=== PATIENT | male | born 1955 | race Caucasian/White ===

== ENCOUNTER 2021-06-18 07:27 | Outpatient (CLI) | payer MEDICARE, SELFPAY ==
[2021-06-18 18:26] LABS: Hematocrit 43.7 % (42.0-52.0); Mean Corpuscular Hemoglobin 29.4 pg (26-34); Mean Corpuscular Volume 91.6 fl (80-100); Mean Platelet Volume 10.8 fl (7.4-10.4); Platelet Count Result 210 k/mm3 (150-375); Red Blood Count 4.77 M/mm3 (4.6-6.20); Red Cell Distribution Width 12.7 % (11.5-14.5); White Blood Count 6.7 K/mm3 (4.5-10.0)
[2021-06-18 18:33] LABS: Alanine Aminotransferase 28 U/L (4-50); Albumin Level 4.1 g/dL (3.5-5.1); Alkaline Phosphatase 77 U/L (38-126); Anion Gap 8 mmol/L (8-16); Aspartate Amino Transferase 28 U/L (17-59); Bilirubin,Total 0.4 mg/dL (0.2-1.3); Blood Urea Nitrogen 22 mg/dL (9-20); Calcium 9.1 mg/dL (8.4-10.2); Carbon Dioxide 25 mmol/L (22-30); Chloride 107 mmol/L (98-107); Cholesterol 164 mg/dL (0-200); Estimated Glomerular Filt Rate > 60; Glucose 122 mg/dL (65-110); HDL Direct 40 mg/dL; Potassium 4.7 mmol/L (3.4-5.0); Sodium 140 mmol/L (137-145); Triglycerides 178 mg/dL (<150)
[2021-06-18 18:45] LABS: LDL Cholesterol Direct 77 mg/dL
[2021-06-18 19:03] LABS: Prostate Specific Antigen 0.7 ng/mL (< OR = 4.0)
== END 2021-06-18 07:28 | disposition home or self-care (01) ==
PROVIDERS: PCP Family Medicine; Visit Provider Family Medicine
DX: G47.33 Obstructive sleep apnea (adult) (pediatric) (principal); H35.09 Other intraretinal microvascular abnormalities; I10 Essential (primary) hypertension; Z12.5 Encounter for screening for malignant neoplasm of prostate; Z87.891 Personal history of nicotine dependence
CPT/HCPCS: 36415; 80053; 80061; 84153; 85027; G0103

== ENCOUNTER 2021-06-20 07:19 | Outpatient (CLI) | payer MEDICARE, SELFPAY ==
[2021-06-20 19:12] LABS: Hemoglobin A1C 5.9 % (<5.7)
== END 2021-06-20 07:20 | disposition home or self-care (01) ==
PROVIDERS: PCP Family Medicine; Visit Provider Family Medicine
DX: R73.09 Other abnormal glucose (principal)
CPT/HCPCS: 36415; 83036

== ENCOUNTER → 2021-06-27 13:26 | Outpatient (CLI) | payer MEDICARE, SELFPAY ==
--- NOTE | ~2021-06-27 | US_ITS ---
EXAMINATION: US aorta DATE: 06/27/2021 14:23 INDICATION: Abdominal aortic aneurysm risk factors of hypertension, prior smoking and hypercholestero lemia. TECHNIQUE: Grayscale, color Doppler, and pulsed Doppler images of the aorta and common iliac arteries were obtained. COMPARISON: None. FINDINGS: The proximal aorta measures 2.6 cm in AP diameter. The mid aorta measures 2.6 cm. The distal aorta me asures 2.0 cm. The right common iliac artery measures 1.2 cm. The left common iliac artery measures 1 .1 cm. IMPRESSION: 1. Normal caliber abdominal aorta. Reviewed, dictated and finalized at location A.
== END ==
PROVIDERS: PCP Family Medicine; Visit Provider Family Medicine
DX: G47.33 Obstructive sleep apnea (adult) (pediatric) (principal); H35.09 Other intraretinal microvascular abnormalities; I10 Essential (primary) hypertension; Z87.891 Personal history of nicotine dependence
CPT/HCPCS: 76775

== ENCOUNTER 2021-12-11 07:36 | Outpatient (CLI) | payer MEDICARE, SELFPAY ==
[2021-12-11 19:11] LABS: Hematocrit 45.2 % (42.0-52.0); Hemoglobin 14.8 g/dL (14.0-18.0); Mean Corpuscular HGB Conc 32.7 g/dl (32-36); Mean Corpuscular Hemoglobin 30.5 pg (26-34); Mean Platelet Volume 10.4 fl (7.4-10.4); Platelet Count Result 214 k/mm3 (150-375); Red Blood Count 4.86 M/mm3 (4.6-6.20); Red Cell Distribution Width 12.8 % (11.5-14.5); White Blood Count 6.4 K/mm3 (4.5-10.0)
[2021-12-11 19:30] LABS: Alanine Aminotransferase 35 U/L (4-50); Albumin Level 4.2 g/dL (3.5-5.1); Alkaline Phosphatase 70 U/L (38-126); Anion Gap 6 mmol/L (8-16); Aspartate Amino Transferase 32 U/L (17-59); Bilirubin,Total 0.6 mg/dL (0.2-1.3); Blood Urea Nitrogen 19 mg/dL (9-20); Calcium 9.1 mg/dL (8.4-10.2); Carbon Dioxide 25 mmol/L (22-30); Chloride 107 mmol/L (98-107); Cholesterol 174 mg/dL (0-200); Estimated Glomerular Filt Rate > 60; Glucose 110 mg/dL (65-110); HDL Direct 38 mg/dL; Potassium 4.3 mmol/L (3.4-5.0); Sodium 138 mmol/L (137-145); Triglycerides 204 mg/dL (<150)
[2021-12-11 19:41] LABS: LDL Cholesterol Direct 90 mg/dL
[2021-12-11 20:04] LABS: Hemoglobin A1C 5.8 % (<5.7)
== END 2021-12-11 07:37 | disposition home or self-care (01) ==
PROVIDERS: PCP Family Medicine; Visit Provider Family Medicine
DX: R73.09 Other abnormal glucose (principal); E78.5 Hyperlipidemia, unspecified; I10 Essential (primary) hypertension; Z87.891 Personal history of nicotine dependence
CPT/HCPCS: 36415; 80053; 80061; 83036; 85027

== ENCOUNTER 2022-05-05 08:54 | Outpatient (CLI) | payer MEDICARE, SELFPAY ==
[2022-05-05 21:24] LABS: Hemoglobin A1C 5.8 % (<5.7)
== END 2022-05-05 08:55 | disposition home or self-care (01) ==
LOC: ANHBWCLAB 08:56
PROVIDERS: PCP Family Medicine; Visit Provider Family Medicine
DX: R73.03 Prediabetes (principal)
CPT/HCPCS: 36415; 83036

== ENCOUNTER 2022-07-09 10:47 | Day surgery (SDC) | payer MEDICARE, SELFPAY ==
[2022-04-17 14:59] VITALS: BMI 26.2
[2022-06-24 08:48] VITALS: BMI 25.9
--- NOTE | 2022-07-08 07:37 | PM.HPGS ---
History of Present Illness History of Present Illness Consent: Risks, benefits, and alternatives have been discussed and questions answered. Patient agrees to proceed with procedure. Chief complaint: Dysphagia Narrative: Umer Cheney is a 67 year old male who ?for the past 6 months he has noticed that he has a difficult time getting food to go down.? This particularly happens with bread like a sandwich.? It feels as though it is stuck in his throat.? There times even water seems to get hung up.? When it does go down then he will develop hiccups.? He does not feel as though food is stuck in the middle of his chest.? He has not lost weight.? He has had no abdominal pain nausea vomiting or change in bowel habits.? He has a history of acid reflux that he has been dealing with for over 40 years.? He thinks he had an EGD in the 1980s.? He was on Prilosec, then Nexium, and more recently has switched to famotidine.? These do control his symptoms? of heartburn. Review of Systems Review of Systems: All systems reviewed & are unremarkable except as noted in HPI and below PMFSH Past Medical History Medical History Anxiety HTN (hypertension) Surgical History Surgical History H/O eye surgery H/O rhinoplasty Family History Family History Father Heart attack Heart disease Mother Depression Hypertension Anxiety Dementia Sibling Hypertension Social History Social History Smoking packs per day: 0.5 Smoking cigarettes per day: 10.0 Years smoked: 15 Smoking pack-years: 7.50 Smoking status: Former smoker Tobacco type: cigarettes Second hand tobacco smoke exposure: Yes Alcohol intake: current Drinks per week: 7 Alcohol use details: BEER Substance use: never Substance use type: does not use Living arrangements: with family Gender identity (if verbalized by the patient): Male Spiritual care concerns: No Meds Home Medications and Allergies Home Medications Medication Instructions Recorded Confirmed Type atorvastatin 10 mg tablet 10 mg PO DAILY #90 tabs 09/17/21 06/24/22 Rx omeprazole 40 mg capsule,delayed 40 mg PO DAILY #90 caps 09/17/21 06/24/22 Rx release aripiprazole 2 mg tablet (Abilify) 2 mg PO DAILY #90 tabs 02/10/22 06/24/22 Rx bupropion HCl 300 mg 24 hr tablet, 300 mg PO QAM #90 tabs 02/10/22 06/24/22 Rx extended release citalopram 40 mg tablet 40 mg PO DAILY #90 tabs 02/10/22 06/24/22 Rx propranolol 10 mg tablet 10 mg PO Q12H #180 tabs 02/10/22 06/24/22 Rx famotidine 40 mg tablet (Pepcid) 40 mg PO DAILY #90 tabs 04/09/22 06/24/22 Rx amlodipine 2.5 mg tablet 2.5 mg PO DAILY #90 tabs 04/27/22 06/24/22 Rx benazepril 40 mg tablet 40 mg PO DAILY #90 tabs 05/24/22 06/24/22 Rx Allergies Allergy/AdvReac Type Severity Reaction Status Date / Time No Known Allergies Allergy Verified 07/09/22 11:59 Exam Const: General: alert Orientation/consciousness: patient oriented x3 Resp: Auscultation: clear to auscultation bilaterally Cardio: Rhythm: regular rhythm GI: GI Palp: Yes Soft to palpation and No Tenderness to palpation present (GI) Neuro: General: patient oriented x3 Assessment and Plan Assessment and plan (1) Dysphagia: Code(s): R13.10 - Dysphagia, unspecified Status: Acute Assessment and Plan: EGD with possible biopsy or dilatation or cautery.
[2022-07-09 11:20] VITALS: BP 128/99; PULSE 85; RESP 20; TEMP 37.4; O2SAT 99
--- NOTE | 2022-07-09 12:04 | P.PNAN_ITS ---
Anes - Initial Pre Proc Eval Procedure: Operation Date: 07/09/22 12:30 Proposed Procedures p Esophagogastroduodenoscopy - Ac Walker MD Date/Time: 07/09/22 12:04 Surgeon: Ac Walker MD Pre Op Diagnosis: Dysphagia Patient Data Age: 67 Gender: M Height: 1.85 m Weight: 89 kg Allergies Allergy/AdvReac Type Severity Reaction Status Date / Time No Known Allergies Allergy Verified 07/09/22 11:59 Home Medications Medication Instructions Recorded Confirmed Type atorvastatin 10 mg tablet 10 mg PO DAILY #90 tabs 09/17/21 06/24/22 Rx omeprazole 40 mg capsule,delayed 40 mg PO DAILY #90 caps 09/17/21 06/24/22 Rx release aripiprazole 2 mg tablet (Abilify) 2 mg PO DAILY #90 tabs 02/10/22 06/24/22 Rx bupropion HCl 300 mg 24 hr tablet, 300 mg PO QAM #90 tabs 02/10/22 06/24/22 Rx extended release citalopram 40 mg tablet 40 mg PO DAILY #90 tabs 02/10/22 06/24/22 Rx propranolol 10 mg tablet 10 mg PO Q12H #180 tabs 02/10/22 06/24/22 Rx famotidine 40 mg tablet (Pepcid) 40 mg PO DAILY #90 tabs 04/09/22 06/24/22 Rx amlodipine 2.5 mg tablet 2.5 mg PO DAILY #90 tabs 04/27/22 06/24/22 Rx benazepril 40 mg tablet 40 mg PO DAILY #90 tabs 05/24/22 06/24/22 Rx Patient hx anesthesia problems: none Family hx anesthesia problems: none Results Review: All pre-operative results and documents have been reviewed as part of the pre- operative evaluation. [facility] Past Medical History Medical History Anxiety HLD (hyperlipidemia) HTN (hypertension) ROBERT (obstructive sleep apnea) Smoking Surgical History Surgical History H/O eye surgery H/O rhinoplasty Family History Family History Father Heart attack Heart disease Mother Depression Hypertension Anxiety Dementia Sibling Hypertension Social History Social History Smoking packs per day: 0.5 Smoking cigarettes per day: 10.0 Years smoked: 15 Smoking pack-years: 7.50 Smoking status: Former smoker Tobacco type: cigarettes Second hand tobacco smoke exposure: Yes Alcohol intake: current Drinks per week: 7 Alcohol use details: BEER Substance use: never Substance use type: does not use Living arrangements: with family Gender identity (if verbalized by the patient): Male Spiritual care concerns: No Anes - Eval Final PreProcedure Day of Procedure 07/09/22 12:04 Patient weight: overweight Heart: regular rate and rhythm Lungs: decreased breath sounds Airway: Mallampati scale class II Neurological: alert and oriented Last oral intake: >/= 8 hours ASA classification: III Emergent: no Anesthetic plan: proceed Anesthesia type and monitoring: general GIVS and standard monitoring Results Review: All pre-operative results and documents have been reviewed as part of the pre- operative evaluation. Informed Consent: The patient's anesthetic plan and its attendant risks and benefits were discussed with the patient/family/POA. Questions were solicited and answers provided to the satisfaction of the patient/family/POA.
[2022-07-09] MEDS: LACTATED RINGERS 1,000 ML 150 ML IV CONT (12:18)
--- NOTE | 2022-07-09 12:44 | SUR.OPER ---
BALLOON DILATION 18-20MM TO ESOPHAGUS
[2022-07-09 12:50] VITALS: BP 125/94; PULSE 68; RESP 18; O2SAT 100
[2022-07-09 13:00] VITALS: BP 115/88; PULSE 73; RESP 20; O2SAT 97
[2022-07-09 13:10] VITALS: BP 144/100; PULSE 70; RESP 18; O2SAT 98
--- NOTE | 2022-07-09 13:22 | WPDANESPN ---
Anes - Prog Note Post-Op Date/Time: 07/09/22 13:22 Cardiovascular status: normal Respiratory status: normal Airway patency: baseline Mental status: baseline Post-Op hydration status: normal Vital Signs: Last Vital Signs Temp 37.4 C 07/09/22 11:20 Pulse 73 07/09/22 13:00 Resp 20 07/09/22 13:00 BP 115/88 07/09/22 13:00 Pulse Ox 97 07/09/22 13:00 O2 Del Method Room Air 07/09/22 13:00 Pain Score (VAS): 0 I/O: Intake & Output 07/08/22 07/09/22 07/09/22 23:59 07:59 15:59 Intake Total 400 Balance 400 Patient Feedback: Patient satisfied with anesthetic care.
== END 2022-07-09 13:21 | disposition home or self-care (01) ==
PROVIDERS: PCP Family Medicine; Visit Provider Internal Medicine Gastroenterology
PROC: 0DJ08ZZ Inspection of Upper Intestinal Tract, Via Natural or Artificial Opening Endoscopic (ICD-10-PCS; CPT 43235; principal; 2022-07-09 12:30)
DX: R13.10 Dysphagia, unspecified (principal)
CPT/HCPCS: 43249; 43239

== ENCOUNTER 2022-07-09 13:00 | Outpatient (NON) | payer MEDICARE, SELFPAY | END 2022-07-09 13:01 | disposition home or self-care (01) | PROVIDERS: PCP Family Medicine; Visit Provider Internal Medicine Gastroenterology | DX: R13.10 Dysphagia, unspecified (principal) | CPT/HCPCS: 88305 ==

== ENCOUNTER 2022-11-03 09:14 | Outpatient (CLI) | payer MEDICARE, SELFPAY ==
[2022-11-03 21:32] LABS: Basophils Percent Auto 0.7 % (0.2-1.2); Eosinophils Absolute Auto 0.2 K/mm3 (0-0.3); Eosinophils Percent Auto 3.3 % (0-4.4); Hematocrit 44.2 % (42.0-52.0); Hemoglobin 14.5 g/dL (14.0-18.0); Immature Granulocyte Absolute 0.02 K/mm3 (0.00-0.031); Immature Granulocyte Percent A 0.3 % (0-0.5); Lymphocytes Percent Auto 36.6 % (18.3-44.2); Mean Corpuscular HGB Conc 32.8 g/dl (32-36); Mean Corpuscular Hemoglobin 30.3 pg (26-34); Mean Corpuscular Volume 92.3 fl (80-100); Mean Platelet Volume 10.6 fl (7.4-10.4); Monocytes Absolute Auto 0.5 K/mm3 (0.1-0.6); Monocytes Percent Auto 7.7 % (2.6-8.5); Neutrophils Absolute Auto 3.1 K/mm3 (1.3-6.7); Neutrophils Percent Auto 51.4 % (45.5-73.1); Platelet Count Result 244 k/mm3 (150-375); Red Blood Count 4.79 M/mm3 (4.6-6.20); Red Cell Distribution Width 12.7 % (11.5-14.5)
[2022-11-03 21:37] LABS: Alanine Aminotransferase 53 U/L (6-50); Albumin Level 4.3 g/dL (3.5-5.1); Alkaline Phosphatase 71 U/L (38-126); Anion Gap 8 mmol/L (8-16); Aspartate Amino Transferase 57 U/L (17-59); Bilirubin,Total 0.5 mg/dL (0.2-1.3); Blood Urea Nitrogen 19 mg/dL (9-20); Calcium 8.5 mg/dL (8.4-10.2); Carbon Dioxide 25 mmol/L (22-30); Chloride 107 mmol/L (98-107); Cholesterol 179 mg/dL (0-200); Estimated Glomerular Filt Rate 60; Glucose 109 mg/dL (65-110); HDL Direct 34 mg/dL; Potassium 4.3 mmol/L (3.4-5.0); Sodium 140 mmol/L (137-145); Triglycerides 234 mg/dL (<150)
[2022-11-03 21:48] LABS: LDL Cholesterol Direct 85 mg/dL
[2022-11-03 22:04] LABS: Prostate Specific Antigen 0.8 ng/mL (< OR = 4.0)
== END 2022-11-03 09:15 | disposition home or self-care (01) ==
PROVIDERS: PCP Family Medicine; Visit Provider Family Medicine
DX: R13.10 Dysphagia, unspecified (principal); F41.9 Anxiety disorder, unspecified; I10 Essential (primary) hypertension; F17.210 Nicotine dependence, cigarettes, uncomplicated; R73.03 Prediabetes; Z12.5 Encounter for screening for malignant neoplasm of prostate
CPT/HCPCS: 36415; 80053; 80061; 83036; 84153; 85025; G0103

== ENCOUNTER 2022-12-25 07:31 | Outpatient (CLI) | payer MEDICARE, SELFPAY ==
[2022-12-25 19:33] LABS: Alanine Aminotransferase 32 U/L (6-50); Albumin Level 4.4 g/dL (3.5-5.1); Alkaline Phosphatase 69 U/L (38-126); Aspartate Amino Transferase 41 U/L (17-59); Bilirubin,Total 0.6 mg/dL (0.2-1.3); Hepatitis B Surface Antigen Negative (Negative)
[2022-12-25 19:39] LABS: HAV RESULT Negative (Negative); Hepatitis B Core IgM Result Negative (Negative)
[2022-12-25 19:51] LABS: Hepatitis C Virus Antibody Negative (Negative)
== END 2022-12-25 07:32 | disposition home or self-care (01) ==
PROVIDERS: PCP Family Medicine; Visit Provider Family Medicine
DX: R74.01 Elevation of levels of liver transaminase levels (principal)
CPT/HCPCS: 36415; 80074; 80076

== ENCOUNTER 2023-05-04 08:52 | Outpatient (CLI) | payer MEDICARE, SELFPAY ==
[2023-05-04 18:36] LABS: Hematocrit 45.6 % (42.0-52.0); Hemoglobin 14.6 g/dL (14.0-18.0); Mean Corpuscular Volume 93.6 fl (80-100); Mean Platelet Volume 10.7 fl (7.4-10.4); Platelet Count Result 201 k/mm3 (150-375); Red Blood Count 4.87 M/mm3 (4.6-6.20); Red Cell Distribution Width 12.8 % (11.5-14.5); White Blood Count 5.9 K/mm3 (4.5-10.0)
[2023-05-04 19:18] LABS: Alanine Aminotransferase 43 U/L (6-50); Albumin Level 4.4 g/dL (3.5-5.1); Alkaline Phosphatase 72 U/L (38-126); Anion Gap 3 mmol/L (8-16); Aspartate Amino Transferase 57 U/L (17-59); Bilirubin,Total 0.7 mg/dL (0.2-1.3); Blood Urea Nitrogen 26 mg/dL (9-20); Calcium 8.8 mg/dL (8.4-10.2); Carbon Dioxide 29 mmol/L (22-30); Chloride 104 mmol/L (98-107); Estimated Glomerular Filt Rate 60; Glucose 105 mg/dL (65-110); Potassium 4.4 mmol/L (3.4-5.0); Sodium 136 mmol/L (137-145)
[2023-05-04 19:35] LABS: Hemoglobin A1C 5.8 % (<5.7)
== END 2023-05-04 08:53 | disposition home or self-care (01) ==
LOC: ANHBWCLAB 08:56
PROVIDERS: PCP Family Medicine; Visit Provider Family Medicine
DX: F41.9 Anxiety disorder, unspecified (principal); H35.09 Other intraretinal microvascular abnormalities; I10 Essential (primary) hypertension; K21.9 Gastro-esophageal reflux disease without esophagitis; R13.10 Dysphagia, unspecified; R73.03 Prediabetes; R73.09 Other abnormal glucose; R74.01 Elevation of levels of liver transaminase levels; Z87.891 Personal history of nicotine dependence
CPT/HCPCS: 36415; 80053; 83036; 85027

== ENCOUNTER 2023-11-30 10:21 | Outpatient (CLI) | payer MEDICARE, SELFPAY ==
--- NOTE | ~2023-11-30 | XR_ITS ---
XR shoulder LT min 2V DATE: 11/30/2023 10:35 INDICATION: Left shoulder pain TECHNIQUE: 4 views COMPARISON: None FINDINGS: There is joint space narrowing at the left acromioclavicular joint. There is joint space narrowing and spurring at the left glenohumeral joint consistent with moderate l eft glenohumeral osteoarthritis. No fracture, dislocation, periosteal reaction or bone destruction or abnormal soft tissue calcificati on is detected. Osteopenia. Prominent degenerative disc disease at C4-5, C5-6 and C6-7. Levoscoliosis of the upper thoracic spine. IMPRESSION: Moderate osteoarthritic change of the left glenohumeral joint Mild degenerative change at the left acromioclavicular joint Osteopenia Prominent cervical spondylosis Levoscoliosis of the upper thoracic spine. Reviewed, dictated and finalized at location B. OR [employer]
[2023-11-30 18:16] LABS: Hematocrit 44.3 % (42.0-52.0); Hemoglobin 14.1 g/dL (14.0-18.0); Mean Corpuscular HGB Conc 31.8 g/dl (32-36); Mean Corpuscular Hemoglobin 29.6 pg (26-34); Mean Corpuscular Volume 93.1 fl (80-100); Mean Platelet Volume 10.7 fl (7.4-10.4); Platelet Count Result 203 k/mm3 (150-375); Red Blood Count 4.76 M/mm3 (4.6-6.20); Red Cell Distribution Width 12.7 % (11.5-14.5); White Blood Count 6.1 K/mm3 (4.5-10.0)
[2023-11-30 18:39] LABS: Hemoglobin A1C 6.1 % (<5.7)
[2023-11-30 18:55] LABS: Alanine Aminotransferase 40 U/L (6-50); Albumin Level 4.2 g/dL (3.5-5.1); Alkaline Phosphatase 72 U/L (38-126); Anion Gap 6 mmol/L (8-16); Aspartate Amino Transferase 60 U/L (17-59); Bilirubin,Total 0.7 mg/dL (0.2-1.3); Blood Urea Nitrogen 17 mg/dL (9-20); Carbon Dioxide 28 mmol/L (22-30); Chloride 104 mmol/L (98-107); Estimated Glomerular Filt Rate > 60; Glucose 103 mg/dL (65-110); Potassium 4.1 mmol/L (3.4-5.0); Sodium 138 mmol/L (137-145)
[2023-11-30 19:21] LABS: Prostate Specific Antigen 0.8 ng/mL (< OR = 4.0)
[2023-12-04 17:56] LABS: Testosterone Free 25.3 pg/mL (35.0-155.0); Testosterone Total 158 ng/dL (250-1100)
== END 2023-11-30 10:22 | disposition home or self-care (01) ==
LOC: ANHBWCLAB 10:22
PROVIDERS: PCP Family Medicine; Visit Provider Family Medicine
DX: F41.9 Anxiety disorder, unspecified (principal); I10 Essential (primary) hypertension; R73.03 Prediabetes; R73.09 Other abnormal glucose; Z00.00 Encounter for general adult medical examination without abnormal findings; Z87.891 Personal history of nicotine dependence; Z12.5 Encounter for screening for malignant neoplasm of prostate; R53.83 Other fatigue; R74.01 Elevation of levels of liver transaminase levels; M85.812 Other specified disorders of bone density and structure, left shoulder; M19.012 Primary osteoarthritis, left shoulder; M47.892 Other spondylosis, cervical region
CPT/HCPCS: 36415; 73030; 80053; 82607; 83036; 84153; 84402; 84403; 85027; G0103

== ENCOUNTER 2024-02-11 07:13 | Outpatient (CLI) | payer MEDICARE, SELFPAY ==
[2024-02-16 13:23] LABS: Testosterone Free 171.6 pg/mL (35.0-155.0); Testosterone Total 756 ng/dL (250-1100)
== END 2024-02-11 07:14 | disposition home or self-care (01) ==
LOC: ANHBWCLAB 07:15
PROVIDERS: PCP Family Medicine; Visit Provider Family Medicine
DX: R79.89 Other specified abnormal findings of blood chemistry (principal)
CPT/HCPCS: 36415; 84402; 84403

== ENCOUNTER 2024-05-31 07:10 | Outpatient (CLI) | payer MEDICARE, SELFPAY ==
[2024-05-31 18:58] LABS: Hematocrit 52.5 % (42.0-52.0); Hemoglobin 16.9 g/dL (14.0-18.0); Mean Corpuscular HGB Conc 32.2 g/dl (32-36); Mean Corpuscular Volume 93.3 fl (80-100); Mean Platelet Volume 10.8 fl (7.4-10.4); Platelet Count Result 174 k/mm3 (150-375); Red Blood Count 5.63 M/mm3 (4.6-6.20); Red Cell Distribution Width 13.4 % (11.5-14.5); White Blood Count 6.7 K/mm3 (4.5-10.0)
[2024-05-31 19:29] LABS: Alanine Aminotransferase 40 U/L (6-50); Albumin Level 4.4 g/dL (3.5-5.1); Alkaline Phosphatase 56 U/L (38-126); Anion Gap 9 mmol/L (4-12); Aspartate Amino Transferase 58 U/L (17-59); Bilirubin,Total 0.7 mg/dL (0.2-1.3); Blood Urea Nitrogen 16 mg/dL (9-20); Calcium 8.8 mg/dL (8.4-10.2); Carbon Dioxide 28 mmol/L (22-30); Chloride 99 mmol/L (98-107); Cholesterol 143 mg/dL (0-200); Estimated Glomerular Filt Rate 60; Glucose 117 mg/dL (65-110); HDL Direct 33 mg/dL; Potassium 4.3 mmol/L (3.4-5.0); Sodium 136 mmol/L (137-145); Triglycerides 172 mg/dL (<150)
[2024-05-31 19:42] LABS: LDL Cholesterol Direct 76 mg/dL
[2024-05-31 19:59] LABS: Prostate Specific Antigen 1.5 ng/mL (< OR = 4.0)
[2024-05-31 22:57] LABS: Hemoglobin A1C 6.2 % (<5.7)
[2024-06-05 11:28] LABS: Testosterone Free 240.7 pg/mL (35.0-155.0); Testosterone Total 939 ng/dL (250-1100)
== END 2024-05-31 07:11 | disposition home or self-care (01) ==
PROVIDERS: PCP Family Medicine; Visit Provider Family Medicine
DX: I10 Essential (primary) hypertension (principal); R53.83 Other fatigue; R73.03 Prediabetes; R79.89 Other specified abnormal findings of blood chemistry; Z00.00 Encounter for general adult medical examination without abnormal findings; Z87.891 Personal history of nicotine dependence; Z12.5 Encounter for screening for malignant neoplasm of prostate; R73.09 Other abnormal glucose; R74.01 Elevation of levels of liver transaminase levels
CPT/HCPCS: 36415; 80053; 80061; 83036; 84153; 84402; 84403; 85027; G0103

== ENCOUNTER 2024-12-01 07:11 | Outpatient (CLI) | payer MEDICARE, SELFPAY ==
--- OUTSIDE RECORDS SUMMARY | 2024-12-01 07:15 | XMS_ITS | Continuity of Care Document ---
Author Organization [facility] Address [address] [place] [phone] Phone Care Team Providers Care Material Damage Adjuster Name Role Phone Arlet Parsons Unavailable Unavaila ble Allergies, Adverse Reactions, Alerts Substance Reaction Status Criticality No Known Allergies Active No Inform ation Medications Medication Instructions Dosage Effective Dates (start - stop) Status Comments BENAZEPRIL HCL (unknown strength) Not Available - Active CELEXA (unknown strength) Not Available - Active Procedures Procedure Date Office/Estab Expanded Office/New Detailed OP Inj/Aspir Major Jt W/Ultrasound 019 Betamethasone Acet Sod Phosp 4units Per 1ML Consult OP/Detailed Consult OP/Detailed Advance Directives Directive Yes / No Effective Date File Name No Information Encounters Encounter Description Practice Location Reason(s) For Visit Diagnoses Date Provider Providers Copied on Encounter Office/Estab Expanded [facility], [address] [place] [address], [id number], tel:[phone] [facility] Chronic pain of left knee 9 Maribel Nice. [address] [place] [address], [id number] , . tel:[phone] Referring Provider: Jerardo Espitia MD C, [address] [place] [address], [id number]. tel:[phone] Office/New Detailed OP [facility], [address] [place] [address], [id number], tel:[phone] [facility] Chronic pain of left kneeOther chronic pain 9 Omkar Kurtz. [address], [id number] , . tel:[phone] Referring Provider: Desean Berman MD A, [address] [place], [address]. tel:[phone] Consult OP/Detailed [facility], [address] [place] [address] [address], [id number], tel:[phone] [facility] Degenerative Cervical SpinePain - Neck (Cervical)Serenity n Shoulder/Clav icle/Scapula 2 Susan Owusu. [address], [id number] , . tel:[phone] Referring Provider: Guy Berman MD W, [address] [facility] [address], [place], [address]. tel:[phone] Family History Family Member Type Diagnosis Age At Onset Mother Problem (finding) unknown Father Problem (finding) unknown Payers Payer name Insurance type Covered democrat ID Linnette gonzales(s) [facility] [id number] Social History Type Description Quantity Date Captured Comments Alcohol Use Details Unknown Caffeine Use Details Unknown Tobacco Use Status No Information Smoking Status Former smoker Smoking Tobacco Use Details Cigarette: No Details Available Cigarette: No Details Available Sex Male Vital Signs Date / Time: Height Weight BMI Pulse Rate Blood Pressure Temperature Respiratory Rate Body Surface Area Head Circumference Head Circ. Percentile Wt./Iain. Percentile BMI percentile Pulse Ox Inhaled Ox 8:25 AM 73.00 in 80.739 kg (178.00 lbs) 23.4 8 kg/m eter (2) Chief Complaint And Reason For Visit No Information Reason For Referral Reason For Referral No Information History Of Present Illness Encounter Date Complaint History Of Prese nt Illness No Information Functional Status Date Functional Assessmen t No Information Instructions Date Instruction Additional Infor mation Patient will come in for a follow-up visit in 4-6 weeks. Related to Chronic pain of left knee Patient educated reg dillan today's diagnosis. Related to Chronic pain of left knee Patient educated reg dillan plan of care and treatment plan. Related to Chronic pain of left knee Follow-up in 6 weeks Related to Chronic pain of left knee Patient educated reg dillan today's diagnosis. Related to Chronic pain of left knee Patient educated reg dillan plan of care and treatment plan. Related to Chronic pain of left knee Assessments Type Assessment Date assessment Chronic pain of left knee Patient Care Teams Name Effective Dates (start - stop) Status Members No Information
[2024-12-01 19:24] LABS: Hematocrit 49.7 % (42.0-52.0); Hemoglobin 16.1 g/dL (14.0-18.0); Mean Corpuscular HGB Conc 32.4 g/dl (32-36); Mean Corpuscular Hemoglobin 30.4 pg (26-34); Mean Platelet Volume 10.4 fl (7.4-10.4); Platelet Count Result 208 k/mm3 (150-375); Red Blood Count 5.29 M/mm3 (4.6-6.20); Red Cell Distribution Width 13.3 % (11.5-14.5)
[2024-12-01 20:38] LABS: Alanine Aminotransferase 34 U/L (6-50); Albumin Level 4.3 g/dL (3.5-5.1); Alkaline Phosphatase 60 U/L (38-126); Anion Gap 8 mmol/L (4-12); Aspartate Amino Transferase 50 U/L (17-59); Bilirubin,Total 0.8 mg/dL (0.2-1.3); Blood Urea Nitrogen 24 mg/dL (9-20); Carbon Dioxide 27 mmol/L (22-30); Chloride 101 mmol/L (98-107); Estimated Glomerular Filt Rate > 60; Glucose 110 mg/dL (65-110); Potassium 4.4 mmol/L (3.4-5.0); Sodium 136 mmol/L (137-145)
[2024-12-01 21:07] LABS: Vitamin D 25 Hydroxy 90.6 ng/mL
== END 2024-12-01 07:12 | disposition home or self-care (01) ==
PROVIDERS: PCP Family Medicine; Visit Provider Family Medicine
DX: R53.83 Other fatigue (principal); Z79.899 Other long term (current) drug therapy; I10 Essential (primary) hypertension; K21.9 Gastro-esophageal reflux disease without esophagitis; R74.8 Abnormal levels of other serum enzymes; Z00.00 Encounter for general adult medical examination without abnormal findings; R79.89 Other specified abnormal findings of blood chemistry; Z12.5 Encounter for screening for malignant neoplasm of prostate
CPT/HCPCS: 36415; 80053; 82306; 82607; 83036; 84153; 84402; 84403; 85027; G0103

== ENCOUNTER 2025-06-13 06:39 | Outpatient (CLI) | payer MEDICARE, SELFPAY ==
[2025-06-13 19:06] LABS: Hematocrit 47.9 % (42.0-52.0); Hemoglobin 15.4 g/dL (14.0-18.0); Immature Granulocyte Percent A 0.7 % (0-0.5); Lymphocytes Absolute Auto 2.17 K/mm3 (0.9-3.2); Mean Corpuscular HGB Conc 32.2 g/dl (32-36); Mean Corpuscular Hemoglobin 30.4 pg (26-34); Mean Corpuscular Volume 94.7 fl (80-100); Nucleated Red Blood Cells Absolute Auto 0.000 K/mm3 (0.0-0.012); Nucleated Red Blood Cells Perc 0.0 % (0.0-0.2); Platelet Count Result 198 k/mm3 (150-375); Red Blood Count 5.06 M/mm3 (4.6-6.20); White Blood Count 6.1 K/mm3 (4.5-10.0)
[2025-06-13 19:27] LABS: Alanine Aminotransferase 36 U/L (6-50); Albumin Level 4.4 g/dL (3.5-5.1); Alkaline Phosphatase 59 U/L (38-126); Anion Gap 6 mmol/L (4-12); Aspartate Amino Transferase 77 U/L (17-59); Bilirubin,Total 0.9 mg/dL (0.2-1.3); Blood Urea Nitrogen 22 mg/dL (9-20); Calcium 9.3 mg/dL (8.4-10.2); Carbon Dioxide 29 mmol/L (22-30); Chloride 102 mmol/L (98-107); Cholesterol 161 mg/dL (0-200); Estimated Glomerular Filt Rate > 60; Glucose 101 mg/dL (65-110); HDL Direct 43 mg/dL; Potassium 4.4 mmol/L (3.4-5.0); Sodium 137 mmol/L (137-145); Total Protein 7.4 g/dL (6.3-8.2); Triglycerides 134 mg/dL (<150)
[2025-06-13 19:41] LABS: Hemoglobin A1C 5.8 % (<5.7)
[2025-06-13 19:58] LABS: Prostate Specific Antigen 2.0 ng/mL (< OR = 4.0)
[2025-06-20 13:08] LABS: Free Testosterone (Direct) 13.5 pg/mL (6.6-18.1)
== END 2025-06-13 06:40 | disposition home or self-care (01) ==
LOC: ANHBWCLAB 06:40
PROVIDERS: PCP Family Medicine; Visit Provider Family Medicine
DX: R73.03 Prediabetes (principal); I10 Essential (primary) hypertension; R79.89 Other specified abnormal findings of blood chemistry; R74.01 Elevation of levels of liver transaminase levels; R53.83 Other fatigue; Z00.00 Encounter for general adult medical examination without abnormal findings; Z79.899 Other long term (current) drug therapy; Z87.891 Personal history of nicotine dependence; R73.09 Other abnormal glucose; Z12.5 Encounter for screening for malignant neoplasm of prostate
CPT/HCPCS: 36415; 80053; 80061; 83036; 84153; 84402; 84403; 85025; G0103